=== PATIENT | male | born 2005 | race Caucasian/White ===

== ENCOUNTER 2023-08-22 14:46 | Inpatient (IN) | payer BC ==
[2023-08-22] MEDS ORDERED: METOCLOPRAMIDE 5 MG/ML 2 ML VIAL IVP STA (14:51)
[2023-08-22] MEDS ORDERED: HYDROmorphone 0.5 MG/0.5 ML SYRINGE IVP STA ×2 (14:51→16:42)
[2023-08-22] MEDS ORDERED: KETOROLAC 15 MG/ML 1 ML VIAL IVP STA (14:51)
[2023-08-22] MEDS ORDERED: SODIUM CHLORIDE 0.9% 1,000 ML IV STA ×2 (14:51→16:04)
--- NOTE | 2023-08-22 15:04 | ED ---
Abdominal Pain HPI - General Chief Complaint: Abdominal Pain Stated Complaint: Abd Pain Time Seen by Provider: 08/22/23 14:47 Source: patient, EMS, RN notes reviewed Mode of arrival: EMS Limitations: no limitations - History of Present Illness Initial Comments: This is a 18-year-old male who presents to the emergency department for abdominal pain. Patient reports 2-3 days of right upper quadrant abdominal pain. The initial episode occurred after eating a piece of pizza. His symptoms have since been intermittent with associated nausea and vomiting. He went to see his PCP today regarding the symptoms, and the pain became severe at the office, and he was then sent to the emergency department for further evaluation. The pain does radiate from the right upper quadrant into the back. Denies any radiation into the shoulder. He was given Zofran and morphine by EMS with no significant relief in symptoms. Denies any history of similar problems in the past. Also denies any fevers or chills. States that his urine does appear darker than normal and his PCP and EMS were concerned that he appeared jaundiced. MD Complaint: abdominal pain - Related Data Home Medications Medication Instructions Recorded Confirmed No Known Home Medications 08/22/23 08/22/23 Allergies Allergy/AdvReac Type Severity Reaction Status Date / Time No Known Allergies Allergy Verified 08/22/23 17:45 Review of Systems ROS Statement: Those systems with pertinent positive or pertinent negative responses have been documented in the HPI. ROS Other: All systems not noted in ROS Statement are negative. Past Medical History Past Medical History: No Reported History History of Any Multi-Drug Resistant Organisms: None Reported Past Surgical History: No Surgical Hx Reported Past Psychological History: Anxiety, Depression Smoking Status: Never smoker Past Alcohol Use History: None Reported Past Drug Use History: None Reported General Exam Limitations: no limitations General appearance: alert, in distress Head exam: Present: atraumatic, normocephalic, normal inspection Eye exam: Present: scleral icterus Respiratory exam: Present: normal lung sounds bilaterally. Absent: respiratory distress, wheezes, rales, rhonchi, stridor Cardiovascular Exam: Present: regular rate, normal rhythm, normal heart sounds. Absent: systolic murmur, diastolic murmur, rubs, gallop, clicks GI/Abdominal exam: Present: soft, tenderness (RUQ), normal bowel sounds. Absent: distended Neurological exam: Present: alert, oriented X3, CN II-XII intact Psychiatric exam: Present: normal affect, normal mood Skin exam: Present: warm, dry, intact. Absent: rash Course Vital Signs 08/22/23 14:48 Temperature 96.9 F L Pulse Rate 77 Respiratory 18 Rate Blood Pressure 134/84 O2 Sat by Pulse 98 Oximetry Medical Decision Making - Medical Decision Making This is a 18-year-old male who presents to the emergency department for abdominal pain. Was pt. sent in by a medical professional or institution? @ -No Did you speak to anyone other than the patient for history? @ -No Did you review nursing and triage notes? @ -Yes, and I agree, it is accurate with regards to the patient's symptoms. Were old charts reviewed? @ -No Differential Diagnosis? @ -Differential Abdominal Pain Men: Appendicitis, cholecystitis, diverticulosis, ischemic bowel, pancreatitis, hepatitis, UTI, gastroenteritis, AAA, incarcerated hernia, bowel obstruction, constipation, inflammatory bowel, hepatitis, peptic ulcer disease, splenic infarction, perforated viscus, testicular torsion, this is not meant to be an all-inclusive list EKG interpreted by me (3pts min.)? @ -Not obtained X-rays interpreted by me (1pt min.)? @ -Not obtained CT interpreted by me (1pt min.)? @ -Not obtained U/S interpreted by me (1pt. min.)? @ -Gallbladder ultrasound obtained. My interpretation identifies cholelithiasis What testing was considered but not performed? (CT, X-rays, U/S, labs)? Why? @ -None What meds were considered but not given? Why? @ -None Did you discuss the management of the patient with other professionals? @ -Yes, Dr. Solis, who accepts the patient for admission and advised IV antibiotics and GI consult. Did you reconcile home meds? @ -No Was smoking cessation discussed for >3mins.? @ -No Was critical care preformed (if so, how long)? @ -No Were there social determinants of health that impacted care today? How? (Homelessness, low income, unemployed, alcoholism, drug addiction, transportation, low edu. Level, literacy, decrease access to med. care, snf, rehab)? @ -No Was there de-escalation of care discussed even if they declined? (Discuss DNR or withdrawal of care, Hospice)? @ -No What co-morbidities impacted this encounter? (DM, HTN, Smoking, COPD, CAD, Cancer, CVA, Hep., AIDS, mental health diagnosis, sleep apnea, morbid obesity)? @ -None Was patient admitted / discharged? @ -Admitted. Lab work obtained revealing a leukocytosis with a white blood cell count of 18. Lactic acid also elevated at 2.3. He does also have a dominguez bstantial elevation in LFTs with a bilirubin of 14, AST of 264, and ALT of 490. Pancreatic enzymes also elevated [place] 1081 [place] [address]. Gallbladder ultrasound revealed cholelithiasis with CBD dilation. Patient's father is a nurse test man at the hospital and reached out to his colleague Dr. Solis, general surgery, regarding the patient. Dr. Solis, while not trailhead construction worker, was agreeable to taking the case. He advised admission to himself with GI listed as consult for gallstone pancreatitis. Also recommended IV antibiotics and keeping the patient NPO. He was started on Zosyn and maintenance IV fluids. Undiagnosed new problem with uncertain prognosis? @ -None Drug Therapy requiring intensive monitoring for toxicity (Heparin, Nitro, Insulin, Cardizem)? @ -None Were any procedures done? @ -None Diagnosis/symptom? @ -Gallstone pancreatitis Acute, or Chronic, or Acute on Chronic? @ -Acute Uncomplicated (without systemic symptoms) or Complicated (systemic symptoms)? @ -Complicated Side effects of treatment? @ -None Exacerbation, Progression, or Severe Exacerbation] @ -Not applicable Poses a threat to life or bodily function? @ -Yes This case was discussed in detail with the attending ED physician, Dr. Melendez. Presentation, findings, and treatment plan discussed in detail as well. - Lab Data Result diagrams: 08/22/23 15:12 08/22/23 15:12 Lab Results 08/22/23 08/22/23 08/22/23 Range/Units 15:12 15:12 15:12 WBC 18.0 H (4.0-11.0) k/uL RBC 5.28 (4.30-5.90) m/uL Hgb 16.7 (13.0-17.5) gm/dL Hct 46.1 (39.0-53.0) % MCV 87.2 (80.0-100.0) fL MCH 31.5 (25.0-35.0) pg MCHC 36.1 (31.0-37.0) g/dL RDW 11.7 (11.5-15.5) % Plt Count 285 (150-450) k/uL MPV 6.9 Neutrophils % 85 % Lymphocytes % 8 % Monocytes % 4 % Eosinophils % 2 % Basophils % 0 % Neutrophils # 15.4 H (1.3-7.7) k/uL Lymphocytes # 1.4 (1.0-4.8) k/uL Monocytes # 0.8 (0-1.0) k/uL Eosinophils # 0.3 (0-0.7) k/uL Basophils # 0.0 (0-0.2) k/uL Sodium 136 L (137-145) mmol/L Potassium 3.6 (3.5-5.1) mmol/L Chloride 98 (98-107) mmol/L Carbon Dioxide 23 (22-30) mmol/L Anion Gap 15 mmol/L BUN 17 (9-20) mg/dL Creatinine 1.01 (0.66-1.25) mg/dL Est GFR (CKD-EPI)AfAm >90 (>60 ml/min/1.73 sqM) Est GFR (CKD-EPI)NonAf >90 (>60 ml/min/1.73 sqM) Glucose 140 H (74-99) mg/dL Lactic Ac Sepsis Rflx Plasma Lactic Acid Niraj 2.3 H* (0.7-2.0) mmol/L Calcium 9.7 (8.4-10.2) mg/dL Total Bilirubin 14.0 H (0.2-1.3) mg/dL AST 264 H (17-59) U/L ALT 490 H (4-49) U/L Alkaline Phosphatase 126 (38-126) U/L Total Protein 8.1 (6.3-8.2) g/dL Albumin 4.8 (3.5-5.0) g/dL Amylase 1081 H* (30-110) U/L Lipase 36019 H (23-300) U/L 08/22/23 Range/Units 15:51 WBC (4.0-11.0) k/uL RBC (4.30-5.90) m/uL Hgb (13.0-17.5) gm/dL Hct (39.0-53.0) % MCV (80.0-100.0) fL MCH (25.0-35.0) pg MCHC (31.0-37.0) g/dL RDW (11.5-15.5) % Plt Count (150-450) k/uL MPV Neutrophils % % Lymphocytes % % Monocytes % % Eosinophils % % Basophils % % Neutrophils # (1.3-7.7) k/uL Lymphocytes # (1.0-4.8) k/uL Monocytes # (0-1.0) k/uL Eosinophils # (0-0.7) k/uL Basophils # (0-0.2) k/uL Sodium (137-145) mmol/L Potassium (3.5-5.1) mmol/L Chloride (98-107) mmol/L Carbon Dioxide (22-30) mmol/L Anion Gap mmol/L BUN (9-20) mg/dL Creatinine (0.66-1.25) mg/dL Est GFR (CKD-EPI)AfAm (>60 ml/min/1.73 sqM) Est GFR (CKD-EPI)NonAf (>60 ml/min/1.73 sqM) Glucose (74-99) mg/dL Lactic Ac Sepsis Rflx Y Plasma Lactic Acid Niraj (0.7-2.0) mmol/L Calcium (8.4-10.2) mg/dL Total Bilirubin (0.2-1.3) mg/dL AST (17-59) U/L ALT (4-49) U/L Alkaline Phosphatase (38-126) U/L Total Protein (6.3-8.2) g/dL Albumin (3.5-5.0) g/dL Amylase (30-110) U/L Lipase (23-300) U/L - Radiology Data Radiology results: report reviewed, image reviewed Disposition Clinical Impression: Gallstone pancreatitis Disposition: ADMITTED IP TO THIS HOSP
[2023-08-22 15:20] LABS: Basophils % (A) 0 %; Eosinophils # (A) 0.3 k/uL (0-0.7); Eosinophils % (A) 2 %; HCT 46.1 % (39.0-53.0); HGB 16.7 gm/dL (13.0-17.5); Lymphocytes # (A) 1.4 k/uL (1.0-4.8); Lymphocytes % (A) 8 %; MCH 31.5 pg (25.0-35.0); MCHC 36.1 g/dL (31.0-37.0); MCV 87.2 fL (80.0-100.0); Mean Platelet Volume 6.9; Monocytes # (A) 0.8 k/uL (0-1.0); Monocytes % (A) 4 %; Neutrophils # (A) 15.4 k/uL (1.3-7.7); Neutrophils % (A) 85 %; Platelet Count 285 k/uL (150-450); RBC 5.28 m/uL (4.30-5.90); RDW 11.7 % (11.5-15.5)
--- NOTE | 2023-08-22 15:55 | US ---
EXAMINATION TYPE: US gallbladder DATE OF EXAM: 08/22/2023 COMPARISON: NONE CLINICAL INDICATION: Male, 18 years old with history of RUQ pain; abd pain TECHNIQUE: Multiple sonographic images of the right upper quadrant are obtained. FINDINGS: EXAM MEASUREMENTS: Liver Length: 14.7 cm Gallbladder Wall: 0.3 cm CBD: 1.1 cm Right Kidney: 10.6 x 5.0 x 4.5 cm Pancreas: wnl Liver: wnl Gallbladder: multiple tiny stones that are mobile, no wall thickening yet Evidence for sonographic Corona's sign: no CBD: dilated with no obvious obstruction Right Kidney: wnl IMPRESSION: 1. Cholelithiasis with no diagnostic evidence of cholecystitis. However, CBD is dilated and distal CB D obstruction or partial obstruction suspected.
[2023-08-22] MEDS ORDERED: PIPERACILLIN-TAZOBACTAM 3.375 GM in SODIUM CHLORIDE 0.9% 100 ML IVPB STA (16:05)
[2023-08-22 16:24] LABS: ALT 490 U/L (4-49); AST 264 U/L (17-59); African American GFR (CKD) >90 (>60 ml/min/1.73 sqM); Albumin 4.8 g/dL (3.5-5.0); Alkaline Phosphatase 126 U/L (38-126); Amylase 1081 U/L (30-110); Anion Gap 15 mmol/L; Blood Urea Nitrogen 17 mg/dL (9-20); Calcium 9.7 mg/dL (8.4-10.2); Carbon Dioxide 23 mmol/L (22-30); Chloride 98 mmol/L (98-107); Glucose 140 mg/dL (74-99); Non-African American GFR(CKD) >90 (>60 ml/min/1.73 sqM); Potassium 3.6 mmol/L (3.5-5.1); Sodium 136 mmol/L (137-145); Total Protein 8.1 g/dL (6.3-8.2)
[2023-08-22 16:25] LABS: Lipase 10149 U/L (23-300)
[2023-08-22] MEDS ORDERED: NALOXONE 0.4 MG/ML 1 ML VIAL IV PRN (16:48)
[2023-08-22] MEDS ORDERED: ONDANSETRON 4 MG/2 ML VIAL IVP PRN (16:48)
[2023-08-22] MEDS ORDERED: HYDROmorphone 0.5 MG/0.5 ML SYRINGE IVP PRN (17:05)
--- NOTE | 2023-08-22 17:05 | P.GSHP ---
History of Present Illness H&P Date: 08/22/23 Chief Complaint: Epigastric pain 18-year-old male presents with epigastric pain that began 2 days ago. Pain has come and gone but has been present for the last 24 hours or so. Pain was a 10 out of 10 now is down to 7 out of 10. No chills. No fevers. Patient has had nausea and vomiting. He now notices his skin color being a little bit yellowish tinged. Urine has been dark for the last 2 days. No history of similar events. The patient had an ultrasound showing gallstones and a CBD of 1.1 cm. Patient's labs show a white blood cell count of 18, elevated lactic acid, bilirubin of 14.0, elevated transaminases, elevated alkaline phosphatase, and elevated amylase and lipase. No significant EtOH use. - Review of Systems Comment: The patient denies any acute changes in vision or hearing, no dysphagia or odynophagia, no chest pain or shortness of breath, no dysuria or hematuria, no headache, no runny nose, no rectal bleeding or melena, no unexplained weight loss Past Medical History Past Medical History: No Reported History History of Any Multi-Drug Resistant Organisms: None Reported Past Surgical History: No Surgical Hx Reported Past Psychological History: Anxiety, Depression Smoking Status: Never smoker Past Alcohol Use History: None Reported Past Drug Use History: None Reported Medications and Allergies Allergies Allergy/AdvReac Type Severity Reaction Status Date / Time No Known Allergies Allergy Verified 08/22/23 14:59 Surgical - Exam Vital Signs Temp Pulse Resp BP Pulse Ox 96.9 F L 77 18 134/84 98 08/22/23 14:48 08/22/23 14:48 08/22/23 14:48 08/22/23 14:48 08/22/23 14:48 Physical exam: General: Well-developed, well-nourished HEENT: Normocephalic, sclerae is icteric Abdomen: Mild epigastric tenderness, no rebound or guarding, nondistended Extremities: No edema, slight jaundice noted Neuro: Alert and oriented Results - Labs 08/22/23 15:12 08/22/23 15:12 Abnormal Lab Results - Last 24 Hours (Table) 08/22/23 08/22/23 08/22/23 Range/Units 15:12 15:12 15:12 WBC 18.0 H (4.0-11.0) k/uL Neutrophils # 15.4 H (1.3-7.7) k/uL Sodium 136 L (137-145) mmol/L Glucose 140 H (74-99) mg/dL Plasma Lactic Acid Niraj 2.3 H* (0.7-2.0) mmol/L Total Bilirubin 14.0 H (0.2-1.3) mg/dL AST 264 H (17-59) U/L ALT 490 H (4-49) U/L Amylase 1081 H* (30-110) U/L Lipase 20738 H (23-300) U/L Diabetes panel 08/22/23 Range/Units 15:12 Sodium 136 L (137-145) mmol/L Potassium 3.6 (3.5-5.1) mmol/L Chloride 98 (98-107) mmol/L Carbon Dioxide 23 (22-30) mmol/L BUN 17 (9-20) mg/dL Creatinine 1.01 (0.66-1.25) mg/dL Glucose 140 H (74-99) mg/dL Calcium 9.7 (8.4-10.2) mg/dL AST 264 H (17-59) U/L ALT 490 H (4-49) U/L Alkaline Phosphatase 126 (38-126) U/L Total Protein 8.1 (6.3-8.2) g/dL Albumin 4.8 (3.5-5.0) g/dL Calcium panel 08/22/23 Range/Units 15:12 Calcium 9.7 (8.4-10.2) mg/dL Albumin 4.8 (3.5-5.0) g/dL Pituitary panel 08/22/23 Range/Units 15:12 Sodium 136 L (137-145) mmol/L Potassium 3.6 (3.5-5.1) mmol/L Chloride 98 (98-107) mmol/L Carbon Dioxide 23 (22-30) mmol/L BUN 17 (9-20) mg/dL Creatinine 1.01 (0.66-1.25) mg/dL Glucose 140 H (74-99) mg/dL Calcium 9.7 (8.4-10.2) mg/dL Adrenal panel 08/22/23 Range/Units 15:12 Sodium 136 L (137-145) mmol/L Potassium 3.6 (3.5-5.1) mmol/L Chloride 98 (98-107) mmol/L Carbon Dioxide 23 (22-30) mmol/L BUN 17 (9-20) mg/dL Creatinine 1.01 (0.66-1.25) mg/dL Glucose 140 H (74-99) mg/dL Calcium 9.7 (8.4-10.2) mg/dL Total Bilirubin 14.0 H (0.2-1.3) mg/dL AST 264 H (17-59) U/L ALT 490 H (4-49) U/L Alkaline Phosphatase 126 (38-126) U/L Total Protein 8.1 (6.3-8.2) g/dL Albumin 4.8 (3.5-5.0) g/dL Assessment and Plan (1) Gallstone pancreatitis Narrative/Plan: 18-year-old male with gallstone pancreatitis. Patient with ultrasound showing gallstones and a dilated common bile duct. We'll order CT pancreas biphase to evaluate degree of pancreatitis. We'll consult GI for possible ERCP. IV fluid resuscitation. Patient will require laparoscopic cholecystectomy likely later during this hospitalization. Continue antibiotics for possible cholangitis. Current Visit: Yes Status: Acute Code(s): K85.10 - BILIARY ACUTE PANCREATITIS WITHOUT NECROSIS OR INFECTION SNOMED Code(s): 97411170
[2023-08-22] MEDS: D5-0.45% NACL WITH KCL 20MEQ/L 1,000 ML IV SCH (17:47)
--- NOTE | 2023-08-22 17:53 | CT ---
EXAMINATION TYPE: CT pancreas biphase CT DLP: 667.8 mGycm, Automated exposure control for dose reduction was used. DATE OF EXAM: 08/22/2023 5:42 PM COMPARISON: Gallbladder ultrasound 08/22/2023 CLINICAL INDICATION:Male, 18 years old with history of gallstone pancreatitis; gallstone pancreatitis . RUQ pain, nausea and vomiting TECHNIQUE: Multiphase CT of the abdomen following the administration of 100 cc of Isovue 300 IV cont rast material. Coronal and sagittal reformats were performed. FINDINGS: LOWER CHEST: Unremarkable ABDOMEN LIVER: Unremarkable GALLBLADDER AND BILE DUCTS: Gallbladder is mildly prominent. Mild extra and intrahepatic biliary duct dilatation. The common bile duct measures up to 1.2 cm. No definitive calcification in the common bi le duct. PANCREAS: Diffuse heterogenous edematous appearance of the pancreas. No focal regions of nonenhanceme nt to suggest necrosis. There is surrounding peripancreatic fluid without organization. No parenchyma l calcifications noted. No pancreatic ductal dilatation. No evidence for vascular complication. SPLEEN: Unremarkable. ADRENAL GLANDS: Unremarkable. KIDNEYS AND URETERS: No evidence of hydronephrosis or renal calculus. The kidneys enhance symmetrical ly. STOMACH AND BOWEL: Wall thickening with of the proximal duodenum. No evidence of bowel obstruction. PERITONEUM: No evidence of pneumoperitoneum. VASCULATURE: No evidence of aortic aneurysm. MUSCULOSKELETAL: No acute osseous abnormalities LYMPH NODES: No gross evidence for lymphadenopathy. SOFT TISSUE/ABDOMINAL WALL: Unremarkable IMPRESSION: 1. Findings of acute interstitial edematous pancreatitis. No evidence for necrosis. Surrounding cj pancreatic fluid without organized fluid collection. 2. Mild intra and extra hepatic biliary ductal dilatation without definitive calculus identified. CT is not sensitive for detecting choledocholithiasis. Consider further evaluation with MRCP/ERCP.
[2023-08-22] MEDS: HYDROmorphone 1 MG/ML 1 ML SYRINGE IVP PRN ×2 (19:33→22:25)
[2023-08-22 20:24] LABS: Color,Urine Dark Orange
[2023-08-22 20:25] LABS: Appearance,Urine Clear (Clear); Bilirubin,Urine 1+ (Negative); Blood,Urine Negative (Negative); Glucose,Urine (UA) Negative (Negative); Ketones,Urine 3+ (Negative); Leukocyte Esterase,Urine Negative (Negative); Nitrite,Urine Negative (Negative); PH, Urine 5.5 (5.0-8.0); Protein,Urine Trace (Negative); Specific Gravity,Urine 1.015 (1.001-1.035); Urobilinogen,Urine <2.0 mg/dL (<2.0)
[2023-08-22] MEDS: HYDROmorphone 0.5 MG/0.5 ML SYRINGE IVP PRN (21:15)
[2023-08-22] MEDS: HEPARIN SODIUM,PORCINE 5,000 UNIT/ML 1 ML VIAL SQ SCH (21:16)
[2023-08-22] MEDS ORDERED: HYDROmorphone 1 MG/ML 1 ML SYRINGE IVP STA (23:35)
[2023-08-23] MEDS: PIPERACILLIN-TAZOBACTAM 3.375 GM in SODIUM CHLORIDE 0.9% 100 ML IVPB SCH ×4 (00:15→23:44)
[2023-08-23] MEDS: D5-0.45% NACL WITH KCL 20MEQ/L 1,000 ML IV SCH ×4 (00:19→18:33)
[2023-08-23] MEDS: HYDROmorphone 0.5 MG/0.5 ML SYRINGE IVP PRN ×2 (01:11→05:46)
[2023-08-23] MEDS: HYDROmorphone 1 MG/ML 1 ML SYRINGE IVP PRN ×6 (03:31→21:47)
[2023-08-23 07:57] LABS: Basophils % (A) 0 %; Eosinophils # (A) 0.1 k/uL (0-0.7); Eosinophils % (A) 1 %; HCT 49.2 % (39.0-53.0); HGB 17.5 gm/dL (13.0-17.5); Lymphocytes % (A) 7 %; MCH 30.9 pg (25.0-35.0); MCHC 35.5 g/dL (31.0-37.0); MCV 87.1 fL (80.0-100.0); Mean Platelet Volume 6.6; Monocytes # (A) 0.9 k/uL (0-1.0); Monocytes % (A) 6 %; Neutrophils # (A) 12.5 k/uL (1.3-7.7); Neutrophils % (A) 86 %; Platelet Count 329 k/uL (150-450); RBC 5.65 m/uL (4.30-5.90); RDW 11.7 % (11.5-15.5); WBC 14.6 k/uL (4.0-11.0)
[2023-08-23 07:58] LABS: INR 1.2 (<1.2); Prothrombin Time 12.6 sec (10.0-12.5)
[2023-08-23 08:02] LABS: ALT 346 U/L (4-49); AST 127 U/L (17-59); African American GFR (CKD) >90 (>60 ml/min/1.73 sqM); Albumin/Globulin Ratio 1.3; Alkaline Phosphatase 102 U/L (38-126); Anion Gap 11 mmol/L; Blood Urea Nitrogen 16 mg/dL (9-20); Calcium 8.9 mg/dL (8.4-10.2); Carbon Dioxide 23 mmol/L (22-30); Chloride 101 mmol/L (98-107); Glucose 145 mg/dL (74-99); Non-African American GFR(CKD) >90 (>60 ml/min/1.73 sqM); Potassium 4.2 mmol/L (3.5-5.1); Sodium 135 mmol/L (137-145); Total Bilirubin 7.3 mg/dL (0.2-1.3)
[2023-08-23] MEDS: HEPARIN SODIUM,PORCINE 5,000 UNIT/ML 1 ML VIAL SQ SCH ×2 (08:08→08:18)
[2023-08-23] MEDS: ONDANSETRON 4 MG/2 ML VIAL IVP PRN ×2 (09:16→18:47)
[2023-08-23 11:01] LABS: Basophils # (A) 0.02 X 10*3/uL (0.00-0.10); Basophils % (A) 0.1 %; Eosinophils # (A) 0.05 X 10*3/uL (0.04-0.35); Eosinophils % (A) 0.3 %; HCT 46.7 % (39.6-50.0); HGB 16.9 d/dL (13.0-17.0); Lymphocytes # (A) 0.98 X 10*3/uL (0.90-5.00); Lymphocytes % (A) 6.5 %; MCH 30.3 pg (27.0-32.0); MCHC 36.2 d/dL (32.0-37.0); MCV 83.8 FL (80.0-97.0); Mean Platelet Volume 9.4 FL (9.5-12.2); Monocytes # (A) 1.17 X 10*3/uL (0.20-1.00); Monocytes % (A) 7.7 %; NRBC Per 100 WBC 0 X 10*3/uL (0.00-0.01); Neutrophils # (A) 12.88 X 10*3/uL (1.80-7.70); Platelet Count 354 X 10*3/uL (140-440); RBC 5.57 X 10*6/uL (4.40-5.60); RDW 11.7 % (11.5-14.5); WBC 15.16 X 10*3/uL (4.50-10.00)
--- NOTE | 2023-08-23 11:15 | P.CONS ---
History of Present Illness - Reason for Consult Consult date: 08/23/23 gallStone pancreatitis Requesting physician: Prateek Solis - Chief Complaint Abdominal pain - History of Present Illness This is a pleasant 18-year-old male who presented to the emergency department yesterday evening with complaints of abdominal pain. Most the pain is in the epigastric right upper quadrant region that is radiating into his pack and has been associated with nausea and vomiting. Patient states Monday night he ate 3 pieces of pizza and following that he started having pain in the epigastric region and had some nausea and vomiting. States Monday he was feeling better however Yesterday. He came back and was sharp and intense in the epigastric region radiating to his back. He had some associated nausea and vomiting through the night. He came into the emergency department for further evaluation and was found to have elevated LFTs as well as amylase and lipase. He denies any previous history of liver disease, no previous known history of gallbladder disease. He states pain is somewhat better however he is getting IV pain medication every 3 hours. He has some nausea related to the pain. He denied any fevers or chills. He has been afebrile. He has been started on IV Zosyn. Today's repeat labs WBC 14.6 hemoglobin 17.5 platelet count 329,000 INR 1.2 total bilirubin 7.3 AST 127 ALT 346 alkaline phosphatase 102. Amylase and lipase currently pending Admitting Labs WBC 18.0 hemoglobin 16.7 hematocrit 46 platelet count 285,000 sodium 136 potassium 3.6 BUN 17 creatinine 1.0 glucose 140 lactic acid 2.3 total bilirubin 14 AST 264 ALT 490 alkaline phosphatase 126 amylase 1081 lipase 10,149 He underwent ultrasound of the gallbladder which reported cholelithiasis with no diagnostic evidence of cholecystitis however CBD is dilated and distal CBD obstruction or partial obstruction suspected. He then underwent CT of the pancreas which reported acute interstitial edematous pancreatitis. No evidence for necrosis. Surrounding. Pancreatic fluid without organized fluid collection. Mild intra-and extrahepatic biliary ductal dilation without definitive calculus identified. CT is not sensitive for detecting choledocholithiasis consider further evaluation with MRCP/ERCP Review of Systems REVIEW OF SYSTEMS: CARDIOPULMONARY: No chest pain or shortness of breath. Gastrointestinal: Epigastric right upper quadrant pain radiating into the back. Nausea but no vomiting currently. No hematemesis, coffee-ground emesis. No rectal bleeding, or melena. GENITOURINARY: No dysuria or hematuria. MUSCULOSKELETAL: Reports normal range of motion. SKIN: No rashes. No jaundice. ENDOCRINE: No chills, fevers. No excessive weight gain or loss. No polydipsia or polyuria. PSYCHIATRIC: Unremarkable. NEUROLOGY: No change in mental status. Denies dizziness, headache. ENT: Vision unremarkable. CONSTITUTIONAL: No recent weight loss. No fever, chills, night sweats. Past Medical History Past Medical History: No Reported History History of Any Multi-Drug Resistant Organisms: None Reported Past Surgical History: No Surgical Hx Reported Past Psychological History: Anxiety, Depression Smoking Status: Never smoker Past Alcohol Use History: None Reported Past Drug Use History: None Reported Medications and Allergies Home Medications Medication Instructions Recorded Confirmed Type No Known Home Medications 08/22/23 08/22/23 History Allergies Allergy/AdvReac Type Severity Reaction Status Date / Time No Known Allergies Allergy Verified 08/22/23 17:45 Physical Exam Vitals: Vital Signs Temp Pulse Resp BP Pulse Ox 08/23/23 06:36 76 18 120/68 100 08/23/23 02:53 98.2 F 72 18 126/74 99 08/22/23 14:48 96.9 F L 77 18 134/84 98 General appearance: The patient is alert, oriented, appears in no acute distress. HET: Head is normocephalic and atraumatic. Conjunctiva pink. Sclera anicteric. Neck: Supple without lymphadenopathy. Trachea midline. Heart: Regular. Lungs: Equal expansion, normal respiratory effort. Abdomen: Soft, epigastric and right upper quadrant tenderness to palpation. No guarding or rigidity. Skin: No rashes. Jaundice. Extremities: Normal skin color and turgor. No pedal edema. Neurological: No focal deficits. Alert and oriented x3. Results CBC & Chem 7: 08/23/23 07:39 08/23/23 07:39 Labs: Abnormal Lab Results - Last 24 Hours (Table) 08/22/23 08/22/23 08/22/23 Range/Units 15:12 15:12 15:12 WBC 18.0 H (4.0-11.0) k/uL Neutrophils # 15.4 H (1.3-7.7) k/uL PT (10.0-12.5) sec INR (<1.2) Sodium 136 L (137-145) mmol/L Glucose 140 H (74-99) mg/dL Plasma Lactic Acid Niraj 2.3 H* (0.7-2.0) mmol/L Total Bilirubin 14.0 H (0.2-1.3) mg/dL AST 264 H (17-59) U/L ALT 490 H (4-49) U/L Amylase 1081 H* (30-110) U/L Lipase 44545 H (23-300) U/L Urine Protein (Negative) Urine Ketones (Negative) Urine Bilirubin (Negative) 08/22/23 08/23/23 08/23/23 Range/Units 20:05 07:39 07:39 WBC 14.6 H (4.0-11.0) k/uL Neutrophils # 12.5 H (1.3-7.7) k/uL PT 12.6 H (10.0-12.5) sec INR 1.2 H (<1.2) Sodium (137-145) mmol/L Glucose (74-99) mg/dL Plasma Lactic Acid Niraj (0.7-2.0) mmol/L Total Bilirubin (0.2-1.3) mg/dL AST (17-59) U/L ALT (4-49) U/L Amylase (30-110) U/L Lipase (23-300) U/L Urine Protein Trace H (Negative) Urine Ketones 3+ H (Negative) Urine Bilirubin 1+ H (Negative) 08/23/23 Range/Units 07:39 WBC (4.0-11.0) k/uL Neutrophils # (1.3-7.7) k/uL PT (10.0-12.5) sec INR (<1.2) Sodium 135 L (137-145) mmol/L Glucose 145 H (74-99) mg/dL Plasma Lactic Acid Niraj (0.7-2.0) mmol/L Total Bilirubin 7.3 H (0.2-1.3) mg/dL AST 127 H (17-59) U/L ALT 346 H (4-49) U/L Amylase (30-110) U/L Lipase (23-300) U/L Urine Protein (Negative) Urine Ketones (Negative) Urine Bilirubin (Negative) Comments: ultrasound of the gallbladder which reported cholelithiasis with no diagnostic evidence of cholecystitis however CBD is dilated and distal CBD obstruction or partial obstruction suspected. CT of the pancreas which reported acute interstitial edematous pancreatitis. No evidence for necrosis. Surrounding. Pancreatic fluid without organized fluid collection. Mild intra-and extrahepatic biliary ductal dilation without defin itive calculus identified. CT is not sensitive for detecting choledocholithiasis consider further evaluation with MRCP/ERCP Assessment and Plan (1) Gallstone pancreatitis Narrative/Plan: 18-year-old male who presented to the emergency department with right upper quadrant and epigastric pain radiating to his back associated with nausea and vomiting since Monday evening was noted to have elevated LFTs as well as amylase and lipase. Ultrasound of the gallbladder shows cholelithiasis with dilated CBD. Patient afebrile, no fevers or chills. CT pancreas shows inflammation of pancreas consistent with acute pancreatitis. No previous history of gallbladder disease, liver disease or pancreatitis. He is admitted with gallstone pancreatitis. Gen. surgery is following. Continue with aggressive IV hydration, pain medication, antiemetics. Keep nothing by mouth except ice chips. Labs are trending down, he is hemodynamically stable. Will await for pancreatic enzymes to return. Likely will proceed with ERCP either tomorrow or Monday depending on patient's symptoms and labs. Current Visit: Yes Status: Acute Code(s): K85.10 - BILIARY ACUTE PANCREATITIS WITHOUT NECROSIS OR INFECTION SNOMED Code(s): 90817308 Plan: 1. Continue symptomatic and supportive care 2. Continue aggressive IV hydration 3. Continue IV Zosyn as ordered 4. Protonix 40 mg daily 5. Repeat stat CBC, CMP, amylase and lipase 6. Repeat daily CBC CMP and lipase 7. Nothing by mouth except ice chips, nothing by mouth after midnight 8. Further recommendations forthcoming and timing of ERCP. Likely tomorrow or Monday. 9. Continue with recommendations from general surgery Thank you for this consultation, we will continue to follow closely. Dr. Lui George I agree with the dictator's note, documented as a scribe by Charis Sepulveda.
[2023-08-23] MEDS: PANTOPRAZOLE 40 MG/10 ML VIAL IVP SCH (11:54)
--- NOTE | 2023-08-23 12:08 | P.PN ---
Subjective Progress Note Date: 08/23/23 CHIEF COMPLAINT: Gallstone pancreatitis HISTORY OF PRESENT ILLNESS: Patient reports that his pain is a little less today. He did have an episode of vomiting around 3 AM this morning. He's had issues with nausea. Patient seen by GI service. Possible ERCP tomorrow or Monday. Afebrile. WBC is down from 18-14.6 total bilirubin is down from 14-7.3 LFTs trending down. Lipase pending PHYSICAL EXAM: VITAL SIGNS: Reviewed. GENERAL: Well-developed in no acute distress. HEENT: Scleral icterus present ABDOMEN: Soft. Nondistended. Epigastric and right upper quadrant tenderness NEUROLOGIC: Alert and oriented. Cranial nerves II through XII grossly intact. ASSESSMENT: 1. Gallstone pancreatitis 2. Possible ascending cholangitis PLAN: -Keep patient nothing by mouth -Continue IV fluids -Patient to have ERCP tomorrow or Monday per GI service -Continue pain management -Continue antibiotics -Laparoscopic cholecystectomy likely later during this hospitalization Physician Harbormaster note has been reviewed by physician. Signing provider agrees with the documented findings, assessment, and plan of care. I have personally seen and examined the patient, reviewed the MOTOR SETTER /PAs history, exam and MDM and agree with the assessment and plan as written. Based on total visit time, I have performed more than 50% of the visit. As above: Patient seen on rounds yesterday. Pain was improved. White blood cell count had improved. GI evaluation noted. Continue IV hydration. Keep nothing by mouth. Objective - Vital Signs Vital signs: Vital Signs Temp 98.7 F 08/23/23 10:07 Pulse 77 08/23/23 10:07 Resp 20 08/23/23 10:07 BP 119/81 08/23/23 10:07 Pulse Ox 97 08/23/23 10:07 FiO2 Intake & Output 08/22/23 08/23/23 08/23/23 18:59 06:59 18:59 Weight 83.915 kg - Labs CBC & Chem 7: 08/24/23 04:09 08/24/23 04:09 Labs: Abnormal Lab Results - Last 24 Hours (Table) 08/22/23 08/22/23 08/22/23 Range/Units 15:12 15:12 15:12 WBC 18.0 H (4.0-11.0) k/uL Neutrophils # 15.4 H (1.3-7.7) k/uL PT (10.0-12.5) sec INR (<1.2) Sodium 136 L (137-145) mmol/L Glucose 140 H (74-99) mg/dL Plasma Lactic Acid Niraj 2.3 H* (0.7-2.0) mmol/L Total Bilirubin 14.0 H (0.2-1.3) mg/dL AST 264 H (17-59) U/L ALT 490 H (4-49) U/L Amylase 1081 H* (30-110) U/L Lipase 12100 H (23-300) U/L Urine Protein (Negative) Urine Ketones (Negative) Urine Bilirubin (Negative) 08/22/23 08/23/23 08/23/23 Range/Units 20:05 07:39 07:39 WBC 14.6 H (4.0-11.0) k/uL Neutrophils # 12.5 H (1.3-7.7) k/uL PT 12.6 H (10.0-12.5) sec INR 1.2 H (<1.2) Sodium (137-145) mmol/L Glucose (74-99) mg/dL Plasma Lactic Acid Niraj (0.7-2.0) mmol/L Total Bilirubin (0.2-1.3) mg/dL AST (17-59) U/L ALT (4-49) U/L Amylase (30-110) U/L Lipase (23-300) U/L Urine Protein Trace H (Negative) Urine Ketones 3+ H (Negative) Urine Bilirubin 1+ H (Negative) 08/23/23 Range/Units 07:39 WBC (4.0-11.0) k/uL Neutrophils # (1.3-7.7) k/uL PT (10.0-12.5) sec INR (<1.2) Sodium 135 L (137-145) mmol/L Glucose 145 H (74-99) mg/dL Plasma Lactic Acid Niraj (0.7-2.0) mmol/L Total Bilirubin 7.3 H (0.2-1.3) mg/dL AST 127 H (17-59) U/L ALT 346 H (4-49) U/L Amylase (30-110) U/L Lipase (23-300) U/L Urine Protein (Negative) Urine Ketones (Negative) Urine Bilirubin (Negative)
[2023-08-23 16:00] LABS: Lipase 2373 U/L (14-60)
[2023-08-23 16:21] LABS: Amylase 1356 U/L (23-121)
[2023-08-24] MEDS: D5-0.45% NACL WITH KCL 20MEQ/L 1,000 ML IV SCH ×3 (01:50→23:02)
[2023-08-24] MEDS: HYDROmorphone 1 MG/ML 1 ML SYRINGE IVP PRN ×6 (03:23→23:01)
[2023-08-24] MEDS: PIPERACILLIN-TAZOBACTAM 3.375 GM in SODIUM CHLORIDE 0.9% 100 ML IVPB SCH ×3 (07:55→23:03)
[2023-08-24] MEDS: HEPARIN SODIUM,PORCINE 5,000 UNIT/ML 1 ML VIAL SQ SCH ×2 (07:56→21:09)
[2023-08-24] MEDS: PANTOPRAZOLE 40 MG/10 ML VIAL IVP SCH (07:56)
[2023-08-24 09:20] LABS: HCT 41.2 % (39.6-50.0); HGB 14.7 d/dL (13.0-17.0); MCH 30.5 pg (27.0-32.0); MCHC 35.7 d/dL (32.0-37.0); MCV 85.5 FL (80.0-97.0); Mean Platelet Volume 9.7 FL (9.5-12.2); NRBC Per 100 WBC 0 X 10*3/uL (0.00-0.01); Platelet Count 291 X 10*3/uL (140-440); RBC 4.82 X 10*6/uL (4.40-5.60); RDW 11.8 % (11.5-14.5)
[2023-08-24 09:44] LABS: Lipase 1951 U/L (14-60)
[2023-08-24 09:45] LABS: ALT 184 U/L (10-49); AST 44 U/L (14-35); Albumin 3.4 d/dL (3.8-4.9); Albumin/Globulin Ratio 1.79 Ratio (1.60-3.17); Alkaline Phosphatase 91 U/L (41-126); Blood Urea Nitrogen 9.7 mg/dL (9.0-27.0); Calcium 8.5 mg/dL (8.7-10.3); Carbon Dioxide 24.4 mmol/L (21.6-31.8); Chloride 98 mmol/L (96-109); Globulin 1.9 d/dL (1.6-3.3); Glucose 121 mg/dL (70-110); Potassium 3.9 mmol/L (3.5-5.5); Sodium 134 mmol/L (135-145); Total Bilirubin 4.2 mg/dL (0.3-1.2); Total Protein 5.3 d/dL (6.2-8.2)
[2023-08-24 10:24] LABS: Basophils # (A) 0.05 X 10*3/uL (0.00-0.10); Basophils % (A) 0.3 %; Eosinophils # (A) 0.12 X 10*3/uL (0.04-0.35); Eosinophils % (A) 0.7 %; Lymphocytes # (A) 0.86 X 10*3/uL (0.90-5.00); Monocytes # (A) 1.69 X 10*3/uL (0.20-1.00); Monocytes % (A) 9.8 %; Neutrophils % (A) 83.7 %; RBC Morphology Normal (Normal)
--- NOTE | 2023-08-24 10:48 | P.PN ---
Subjective Progress Note Date: 08/24/23 CHIEF COMPLAINT: Gallstone pancreatitis HISTORY OF PRESENT ILLNESS: Patient lying in bed comfortably. Reports a decrease in pain. Denies any vomiting. Didn't have some nausea after pain medication. Did have a temp of 101 last night with heart rate 104. WBC is up from 14-17.3. Total bilirubin down from 7.3-4.8 AST 127 down to 44 ALT 346 down to 184 alk phos 91 lipase is down to 1951 PHYSICAL EXAM: VITAL SIGNS: Reviewed. GENERAL: Well-developed in no acute distress. HEENT: Scleral icterus present ABDOMEN: Soft. Nondistended. Epigastric and right upper quadrant tenderness NEUROLOGIC: Alert and oriented. Cranial nerves II through XII grossly intact. Skin: Jaundice ASSESSMENT: 1. Gallstone pancreatitis 2. Possible ascending cholangitis PLAN: -Keep patient nothing by mouth -Awaiting GI decision about possible ERCP today -Continue IV fluids -Continue pain management -Continue antibiotics -Laparoscopic cholecystectomy likely later during this hospitalization Physician Spray Mixer note has been reviewed by physician. Signing provider agrees with the documented findings, assessment, and plan of care. I have personally seen and examined the patient, reviewed the CARTON MARKER MACHINE /PAs history, exam and MDM and agree with the assessment and plan as written. Based on total visit time, I have performed more than 50% of the visit. As above: Patient feels well. Less pain although still using IV pain medications. He had a temp of 101 and his white count did go up slightly today. Agree with plans for ERCP. Will tentatively scheduled for laparoscopic, possible open cholecystectomy on Monday. Risks of bleeding, infection, bile leak, bile duct injury, retained common bile duct stone, trocar injury, conversion to an open procedure, hernia, anesthesia related complications were reviewed. The patient understands and wishes to proceed. Objective - Vital Signs Vital signs: Vital Signs Temp 98.1 F 08/24/23 07:00 Pulse 80 08/24/23 07:00 Resp 20 08/24/23 07:00 BP 111/68 08/24/23 07:00 Pulse Ox 98 08/24/23 07:00 FiO2 Intake & Output 08/23/23 08/24/23 08/24/23 18:59 06:59 18:59 Intake Total 0 Balance 0 Weight 83.915 kg Intake: Oral 0 Other: Voiding Method Toilet - Labs CBC & Chem 7: 08/24/23 04:09 08/24/23 04:09 Labs: Abnormal Lab Results - Last 24 Hours (Table) 08/23/23 08/23/23 08/24/23 Range/Units 07:32 07:48 04:09 WBC 15.16 H 17.30 H (4.50-10.00) X 10*3/uL MPV 9.4 L (9.5-12.2) FL Neutrophils # 12.88 H 14.50 H (1.80-7.70) X 10*3/uL Lymphocytes # 0.86 L (0.90-5.00) X 10*3/uL Monocytes # 1.17 H 1.69 H (0.20-1.00) X 10*3/uL Sodium (135-145) mmol/L BUN/Creatinine Ratio (12.00-20.00) Ratio Glucose (70-110) mg/dL Calcium (8.7-10.3) mg/dL Total Bilirubin (0.3-1.2) mg/dL AST (14-35) U/L ALT (10-49) U/L Total Protein (6.2-8.2) d/dL Albumin (3.8-4.9) d/dL Amylase 1356 H* (23-121) U/L Lipase 2373 H (14-60) U/L 08/24/23 Range/Units 04:09 WBC (4.50-10.00) X 10*3/uL MPV (9.5-12.2) FL Neutrophils # (1.80-7.70) X 10*3/uL Lymphocytes # (0.90-5.00) X 10*3/uL Monocytes # (0.20-1.00) X 10*3/uL Sodium 134 L (135-145) mmol/L BUN/Creatinine Ratio 9.70 L (12.00-20.00) Ratio Glucose 121 H (70-110) mg/dL Calcium 8.5 L (8.7-10.3) mg/dL Total Bilirubin 4.2 H (0.3-1.2) mg/dL AST 44 H (14-35) U/L ALT 184 H (10-49) U/L Total Protein 5.3 L (6.2-8.2) d/dL Albumin 3.4 L (3.8-4.9) d/dL Amylase (23-121) U/L Lipase 1951 H (14-60) U/L Microbiology - Last 24 Hours (Table) 08/22/23 16:40 Blood Culture - Preliminary Blood 08/22/23 16:20 Blood Culture - Preliminary Blood
--- NOTE | 2023-08-24 15:47 | P.PN ---
Subjective Progress Note Date: 08/24/23 Principal diagnosis: Gallstone pancreatitis This is a pleasant 18-year-old male who presented to the emergency department yesterday evening with complaints of abdominal pain. Most the pain is in the epigastric right upper quadrant region that is radiating into his pack and has been associated with nausea and vomiting. Patient states Monday night he ate 3 pieces of pizza and following that he started having pain in the epigastric region and had some nausea and vomiting. States Monday he was feeling better however Yesterday. He came back and was sharp and intense in the epigastric region radiating to his back. He had some associated nausea and vomiting through the night. He came into the emergency department for further evaluation and was found to have elevated LFTs as well as amylase and lipase. He denies any previous history of liver disease, no previous known history of gallbladder disease. He states pain is somewhat better however he is getting IV pain m edication every 3 hours. He has some nausea related to the pain. He denied any fevers or chills. He has been afebrile. He has been started on IV Zosyn. Today's repeat labs WBC 14.6 hemoglobin 17.5 platelet count 329,000 INR 1.2 total bilirubin 7.3 AST 127 ALT 346 alkaline phosphatase 102. Amylase and lipase currently pending Admitting Labs WBC 18.0 hemoglobin 16.7 hematocrit 46 platelet count 285,000 sodium 136 potassium 3.6 BUN 17 creatinine 1.0 glucose 140 lactic acid 2.3 total bilirubin 14 AST 264 ALT 490 alkaline phosphatase 126 amylase 1081 lipase 10,149 He underwent ultrasound of the gallbladder which reported cholelithiasis with no diagnostic evidence of cholecystitis however CBD is dilated and distal CBD obstruction or partial obstruction suspected. He then underwent CT of the pancreas which reported acute interstitial edematous pancreatitis. No evidence for necrosis. Surrounding. Pancreatic fluid without organized fluid collection. Mild intra-and extrahepatic biliary ductal dilation without definitive calculus identified. CT is not sensitive for detecting choled ocholithiasis consider further evaluation with MRCP/ERCP 08/24/2023 Patient was seen and examined at the follow-up. He was resting in bed comfortably. He states the abdominal pain has improved some. He did spike a fever through the night with a max temp of 101.0, he has been afebrile since then. He states he has some nausea but no vomiting. He is still really requiring IV pain medication every 3-6 hours. He remains on IV Zosyn. WBC 17.3 hemoglobin 14.7 platelet count 291,000 total bilirubin 4.2 AST 44 ALT 184 alkaline phosphatase 91 lipase 1951 Objective - Vital Signs Vital signs: Vital Signs Temp 98.1 F 08/24/23 07:00 Pulse 80 08/24/23 07:00 Resp 20 08/24/23 07:00 BP 111/68 08/24/23 07:00 Pulse Ox 98 08/24/23 07:00 FiO2 Intake & Output 08/23/23 08/24/23 08/24/23 18:59 06:59 18:59 Intake Total 0 Balance 0 Weight 83.915 kg Intake: Oral 0 Other: Voiding Method Toilet - Exam General appearance: The patient is alert, oriented, appears in no acute distress. HET: Head is normocephalic and atraumatic. Conjunctiva pink. Sclera anicteric. Neck: Supple without lymphadenopathy. Abdomen: Soft, epigastric and right upper quadrant tenderness, nondistended. No guarding or rigidity. Extremities: Normal skin color and turgor. No pedal edema Skin: No rashes, no jaundice Neurological: No focal deficits. Alert and oriented. - Labs CBC & Chem 7: 08/24/23 04:09 08/24/23 04:09 Labs: Abnormal Lab Results - Last 24 Hours (Table) 08/23/23 08/23/23 Range/Units 07:32 07:48 WBC 15.16 H (4.50-10.00) X 10*3/uL MPV 9.4 L (9.5-12.2) FL Neutrophils # 12.88 H (1.80-7.70) X 10*3/uL Monocytes # 1.17 H (0.20-1.00) X 10*3/uL Amylase 1356 H* (23-121) U/L Lipase 2373 H (14-60) U/L Microbiology - Last 24 Hours (Table) 08/22/23 16:40 Blood Culture - Preliminary Blood 08/22/23 16:20 Blood Culture - Preliminary Blood Assessment and Plan (1) Gallstone pancreatitis Narrative/Plan: 18-year-old male who presented to the emergency department with right upper quadrant and epigastric pain radiating to his back associated with nausea and vomiting since Monday evening was noted to have elevated LFTs as well as amylase and lipase. Ultrasound of the gallbladder shows cholelithiasis with dilated CBD. Patient afebrile, no fevers or chills. CT pancreas shows inflammation of pancreas consistent with acute pancreatitis. No previous history of gallbladder disease, liver disease or pancreatitis. He is admitted with gallstone pancreatitis. Gen. surgery is following. Continue with aggressive IV hydration, pain medication, antiemetics. Keep nothing by mouth except ice chips. Labs are trending down, he is hemodynamically stable. Will await for pancreatic enzymes to return. Likely will proceed with ERCP either tomorrow or Monday depending on patient's symptoms and labs. Labs continue to improve and are trending down. Abdominal pain improving as well. Patient had one mixed [place] 101 but has since been afebrile. We'll plan on ERCP tomorrow morning. Current Visit: Yes Status: Acute Code(s): K85.10 - BILIARY ACUTE ARTHUR CREATITIS WITHOUT NECROSIS OR INFECTION SNOMED Code(s): 14126423 Plan: 1. Continue symptomatic and supportive care 2. Continue aggressive IV hydration 3. Continue IV Zosyn as ordered 4. Protonix 40 mg daily 5. Repeat daily CBC CMP and lipase 6. He may have clear liquid diet, nothing by mouth after midnight 7. Indomethacin 100 mg per rectum one hour prior to procedure 8. Plan for ERCP tomorrow 9. Continue with recommendations from general surgery Thank you for this consultation, we will continue to follow closely. Dr. Lui George I agree with the dictator's note, documented as a scribe by Charis Sepulveda.
[2023-08-25] MEDS: HYDROmorphone 1 MG/ML 1 ML SYRINGE IVP PRN ×2 (02:12→05:31)
[2023-08-25] MEDS ORDERED: INDOMETHACIN 100 MG SUPPOSITORY RECTAL ONE (06:00)
[2023-08-25] MEDS: D5-0.45% NACL WITH KCL 20MEQ/L 1,000 ML IV SCH ×3 (06:41→14:33)
[2023-08-25] MEDS ORDERED: MIDAZOLAM 2 MG/2 ML VIAL ONE (06:59)
[2023-08-25] MEDS ORDERED: PROPOFOL 10 MG/ML 20 ML VIAL IV ONE (06:59)
[2023-08-25] MEDS ORDERED: fentaNYL (PF) 50 MCG/ML 2 ML AMP ONE (06:59)
[2023-08-25] MEDS ORDERED: LIDOCAINE 1% INJ 10MG/ML (20 ML MDV) ONE (06:59)
[2023-08-25] MEDS ORDERED: KETAMINE HCL IN 0.9 % NACL 50 MG/5 ML SYRINGE ONE (06:59)
[2023-08-25] MEDS ORDERED: LACTATED RINGERS 1,000 ML IV ONE (07:00)
[2023-08-25] MEDS ORDERED: IOPAMIDOL-300 30ML BTL MISCELLANE ONE (07:15)
[2023-08-25 08:03] LABS: Basophils % (A) 0 %; Eosinophils # (A) 0.5 k/uL (0-0.7); Eosinophils % (A) 3 %; HCT 38.5 % (39.0-53.0); Lymphocytes # (A) 1.2 k/uL (1.0-4.8); Lymphocytes % (A) 9 %; MCH 30.9 pg (25.0-35.0); MCHC 35.6 g/dL (31.0-37.0); MCV 86.8 fL (80.0-100.0); Mean Platelet Volume 7.5; Monocytes % (A) 7 %; Neutrophils # (A) 11.3 k/uL (1.3-7.7); Neutrophils % (A) 80 %; Platelet Count 244 k/uL (150-450); RBC 4.43 m/uL (4.30-5.90); WBC 14.1 k/uL (4.0-11.0)
--- NOTE | 2023-08-25 08:03 | P.PCN ---
Date of Procedure: 08/25/23 Procedure(s) Performed: Brief history: Patient is a 18 year-old pleasant white male admitted hospital with acute gallstone pancreatitis. He presents with severe epigastric pain and elevated amylase and lipase and bilirubin of 14 g procedure. Ultrasound of the abdomen and CT of abdomen did reveal gallstones dilated CBD. Pancreatitis has significantly improved. Last labs demonstrating revealed a bilirubin of 4 g/dL. He is scheduled for an ERCP as part of evaluation of abdominal pain and elevated serum transaminases for the last 2 days' duration. Procedure performed: ERCP/unsuccessful cannulation of the common bile duct Preoperative diagnoses: Jaundice/acute gallstone pancreatitis IV sedation per anesthesia: Procedure: After informed consent was obtained from the patient and after the risks benefits and complications including bleeding perforation and pancreatitis explained in detail the patient was brought into the endoscopy unit. The patient was placed in prone position and IV conscious sedation was administered by anesthesia under continuous monitoring. The Olympus side-viewing duod enoscope was then inserted into the mouth and esophagus intubated without any difficulty. The scope was gradually advanced into the stomach and duodenum. The major papilla was identified without any difficulty. Initial cannulation using the guidewire technique resulted in cannulation of the pancreatic duct. Subsequently despite multiple attempts I was not able to cannulate the common bile duct with a taper tip catheter. At this time the catheter was removed and used a biliary sphincterotome and despite multiple attempts at cannulation using the guidewire technique I was not successful in cannulating the common bile duct. After trying for 20 minutes the procedure was terminated was a concern of pancreatitis. Patient tolerated the procedure well. Impression: Unsuccessful cannulation of the common bile duct Pancreatic duct cannulated with a wire the dye was not injected Recommendations: The findings of this examination were discussed with the patient as well as a family. Discussed with Dr. Solis and at this time will obtain MRCP to evaluate further.
[2023-08-25 08:17] LABS: HGB 13.7 gm/dL (13.0-17.5)
[2023-08-25 08:56] LABS: ALT 127 U/L (10-49); AST 27 U/L (14-35); Albumin 3.4 d/dL (3.8-4.9); Albumin/Globulin Ratio 1.62 Ratio (1.60-3.17); Alkaline Phosphatase 77 U/L (41-126); BUN/Creat Ratio 5.89 Ratio (12.00-20.00); Blood Urea Nitrogen 5.3 mg/dL (9.0-27.0); Calcium 8.7 mg/dL (8.7-10.3); Carbon Dioxide 29.1 mmol/L (21.6-31.8); Chloride 99 mmol/L (96-109); Globulin 2.1 d/dL (1.6-3.3); Glucose 107 mg/dL (70-110); Potassium 3.9 mmol/L (3.5-5.5); Sodium 136 mmol/L (135-145); Total Bilirubin 2.7 mg/dL (0.3-1.2); Total Protein 5.5 d/dL (6.2-8.2)
[2023-08-25] MEDS: PIPERACILLIN-TAZOBACTAM 3.375 GM in SODIUM CHLORIDE 0.9% 100 ML IVPB SCH ×2 (09:03→17:29)
[2023-08-25] MEDS: HEPARIN SODIUM,PORCINE 5,000 UNIT/ML 1 ML VIAL SQ SCH ×2 (09:04→23:53)
[2023-08-25] MEDS: PANTOPRAZOLE 40 MG/10 ML VIAL IVP SCH (09:04)
--- NOTE | 2023-08-25 09:09 | FL ---
EXAMINATION TYPE: FL ERCP biliary duct only DATE OF EXAM: 08/25/2023 HISTORY: Fluoroscopy time Total dose area product (DAP) in uGy*m?, mGy*cm? (or similar): 2.9329 IMPRESSION: 1. Fluoroscopy time.
--- NOTE | 2023-08-25 11:55 | P.PN ---
Subjective Progress Note Date: 08/25/23 CHIEF COMPLAINT: Gallstone pancreatitis HISTORY OF PRESENT ILLNESS: Patient is sitting up in bed comfortably. Reports that his pain has decreased. And currently has no pain. Denies any nausea or vomiting. He did have a bowel movement. He underwent ERCP the reported unsuccessful cannulation of the common bile duct. Patient scheduled for an MRCP today. He did have a low-grade temp of 1.2 last night. WBC is down from 17-14. Total bilirubin is down to 2.7 AST has normalized ALT trending down PHYSICAL EXAM: VITAL SIGNS: Reviewed. GENERAL: Well-developed in no acute distress. HEENT: minimal Scleral icterus present ABDOMEN: Soft. Nondistended. Minimal discomfort with palpation of the epig astric and right upper quadrant NEUROLOGIC: Alert and oriented. Cranial nerves II through XII grossly intact. Skin: decrease in jaundice ASSESSMENT: 1. Gallstone pancreatitis 2. Aending cholangitis PLAN: -Patient scheduled for MRCP this afternoon -Keep patient nothing by mouth -Continue IV fluids -Continue pain management -Continue antibiotics -Laparoscopic cholecystectomy scheduled for 08/27/2023 Physician Monotype Mechanic note has been reviewed by physician. Signing provider agrees with the documented findings, assessment, and plan of care. I have personally seen and examined the patient, reviewed the GEEK SQUAD MANAGER /PAs history, exam and MDM and agree with the assessment and plan as written. Based on total visit time, I have performed more than 50% of the visit. As above: Clinically patient is improving. His pain is less. His white blood cell count is improved. Low-grade temp. Today's ERCP unfortunately unsuccessful. MRCP films reviewed. No obvious CBD Stone seen. Awaiting official report. Tentatively will plan proceeding with laparoscopic cholecystectomy on Monday if enzymes continue to trend downwards. Continue antibiotics. Objective - Vital Signs Vital signs: Vital Signs Temp 99.4 F 08/25/23 06:45 Pulse 65 08/25/23 09:10 Resp 18 08/25/23 06:45 BP 104/58 08/25/23 09:10 Pulse Ox 95 08/25/23 09:10 FiO2 Intake & Output 08/24/23 08/25/23 08/25/23 18:59 06:59 18:59 Intake Total 500 Balance 500 Intake: IV 500 Other: Voiding Method Toilet Toilet # Voids 1 - Labs CBC & Chem 7: 08/25/23 07:02 08/25/23 05:34 Labs: Abnormal Lab Results - Last 24 Hours (Table) 08/24/23 08/25/23 08/25/23 Range/Units 04:09 05:34 07:02 WBC 14.1 H (4.0-11.0) k/uL Hct 38.5 L (39.0-53.0) % Neutrophils # 14.50 H 11.3 H (1.80-7.70) X 10*3/uL Lymphocytes # 0.86 L (0.90-5.00) X 10*3/uL Monocytes # 1.69 H (0.20-1.00) X 10*3/uL BUN 5.3 L (9.0-27.0) mg/dL BUN/Creatinine Ratio 5.89 L (12.00-20.00) Ratio Total Bilirubin 2.7 H (0.3-1.2) mg/dL ALT 127 H (10-49) U/L Total Protein 5.5 L (6.2-8.2) d/dL Albumin 3.4 L (3.8-4.9) d/dL Microbiology - Last 24 Hours (Table) 08/22/23 16:40 Blood Culture - Preliminary Blood 08/22/23 16:20 Blood Culture - Preliminary Blood
--- NOTE | 2023-08-25 16:40 | MR ---
EXAMINATION TYPE: MR MRCP DATE OF EXAM: 08/25/2023 1:25 PM CLINICAL INDICATION:Male, 18 years old with history of jaundice, r/o CBD stone; PHH, Jaundice, r/o CB D stone. Unsuccessful ercp. COMPARISON: CT 08/22/2023 TECHNIQUE: Multi planar, T2-weighted imaging with and without fat saturation and chemical shift imag ing was performed of the abdomen. Then, heavily T2 weighted imaging (half-Fourier acquisition single- shot turbo spin-echo) was utilized in order to study the biliary system. Maximum intensity projectio n images were reconstructed from the original data of the biliary tree. 3D images were created on a [email or web address] work station. No Gadolinium given. FINDINGS: Lower Thorax: There is small bilateral pleural effusions. MRCP: * The intrahepatic ducts mildly dilated centrally. * The common bile duct at the level of the pancreatic head measures 7 mm in size. There is tiny low signal lesions in the papilla series 701 image 26 and 27 unclear whether these are gallstones versus artifact. * The common hepatic duct measures 10 mm in size. * The pancreatic duct is normal. The gallbladder demonstrates multiple gallstones layering dependently. The visualized portion of the cystic duct appears patent. There is no evidence for gallbladder wall thickening. Abdomen: Liver: Unremarkable. Pancreas: Fat stranding changes around the pancreas. Pancreatic parenchyma appears uniform. Spleen: Unremarkable. Adrenal glands: Unremarkable. Kidneys: Unremarkable. Stomach and Bowel: Unremarkable as visualized. Peritoneum: No evidence of pneumoperitoneum or free fluid. Vasculature: Unremarkable. No aortic aneurysm. Musculoskeletal: The osseous structures appear intact. Lymph Nodes: No gross evidence for lymphadenopathy. Abdominal wall: Unremarkable. IMPRESSION: 1. Cholelithiasis with multiple tiny gallstones present. The extra hepatic biliary system is dilated with a few few tiny gallstones near the distal papilla which may be present. 2. Inflammation changes around the pancreas compatible with acute pancreatitis. 3. Trace bilateral pleural effusions.
[2023-08-26] MEDS: PIPERACILLIN-TAZOBACTAM 3.375 GM in SODIUM CHLORIDE 0.9% 100 ML IVPB SCH ×4 (00:17→23:43)
[2023-08-26] MEDS: HYDROmorphone 0.5 MG/0.5 ML SYRINGE IVP PRN ×2 (00:31→05:28)
[2023-08-26] MEDS: D5-0.45% NACL WITH KCL 20MEQ/L 1,000 ML IV SCH ×5 (05:27→23:09)
[2023-08-26 06:59] LABS: Basophils % (A) 0 %; Eosinophils # (A) 0.6 k/uL (0-0.7); Eosinophils % (A) 6 %; HCT 35.5 % (39.0-53.0); HGB 12.6 gm/dL (13.0-17.5); Lymphocytes % (A) 11 %; MCH 31.3 pg (25.0-35.0); MCHC 35.4 g/dL (31.0-37.0); MCV 88.4 fL (80.0-100.0); Mean Platelet Volume 7.3; Monocytes # (A) 0.7 k/uL (0-1.0); Monocytes % (A) 7 %; Neutrophils # (A) 6.8 k/uL (1.3-7.7); Neutrophils % (A) 74 %; Platelet Count 263 k/uL (150-450); RBC 4.01 m/uL (4.30-5.90); RDW 11.8 % (11.5-15.5); WBC 9.2 k/uL (4.0-11.0)
[2023-08-26 07:13] LABS: ALT 104 U/L (4-49); AST 30 U/L (17-59); African American GFR (CKD) >90 (>60 ml/min/1.73 sqM); Albumin 3.1 g/dL (3.5-5.0); Albumin/Globulin Ratio 1.1; Alkaline Phosphatase 148 U/L (38-126); Anion Gap 10 mmol/L; Blood Urea Nitrogen 5 mg/dL (9-20); Calcium 8.5 mg/dL (8.4-10.2); Carbon Dioxide 26 mmol/L (22-30); Chloride 102 mmol/L (98-107); Globulin 2.7 g/dL; Glucose 103 mg/dL (74-99); Lipase 1283 U/L (23-300); Non-African American GFR(CKD) >90 (>60 ml/min/1.73 sqM); Potassium 3.9 mmol/L (3.5-5.1); Sodium 138 mmol/L (137-145); Total Bilirubin 1.9 mg/dL (0.2-1.3); Total Protein 5.8 g/dL (6.3-8.2)
[2023-08-26] MEDS: HEPARIN SODIUM,PORCINE 5,000 UNIT/ML 1 ML VIAL SQ SCH ×2 (07:19→20:47)
[2023-08-26] MEDS: PANTOPRAZOLE 40 MG/10 ML VIAL IVP SCH (09:30)
--- NOTE | 2023-08-26 10:36 | P.PN ---
Subjective Progress Note Date: 08/26/23 (Surgery) CHIEF COMPLAINT: Gallstone pancreatitis HISTORY OF PRESENT ILLNESS: Patient is sitting up in bed comfortably. Reports that his pain has decreased. And currently has no pain. Denies any nausea or vomiting. He did have a bowel movement. He underwent ERCP the reported unsuccessful cannulation of the common bile duct. PHYSICAL EXAM: VITAL SIGNS: Reviewed. GENERAL: Well-developed in no acute distress. HEENT: minimal Scleral icterus present ABDOMEN: Soft. Nondistended. Minimal discomfort with palpation of the epigastric and right upper quadrant NEUROLOGIC: Alert and oriented. Cranial nerves II through XII grossly intact. Skin: decrease in jaundice ASSESSMENT: 1. Gallstone pancreatitis 2. Ascending cholangitis PLAN: -Keep patient nothing by mouth -Continue IV fluids -Continue pain management -Continue antibiotics -Laparoscopic cholecystectomy scheduled for 08/27/2023 Objective - Vital Signs Vital signs: Vital Signs Temp 98.1 F 08/26/23 07:19 Pulse 55 L 08/26/23 07:19 Resp 20 08/26/23 07:19 BP 105/63 08/26/23 07:19 Pulse Ox 98 08/26/23 07:19 FiO2 Intake & Output 08/25/23 08/26/23 08/26/23 18:59 06:59 18:59 Intake Total 500 Balance 500 Intake: IV 500 Other: Voiding Method Toilet Toilet - Labs CBC & Chem 7: 08/26/23 06:12 08/26/23 06:12 Labs: Abnormal Lab Results - Last 24 Hours (Table) 08/26/23 08/26/23 Range/Units 06:12 06:12 RBC 4.01 L (4.30-5.90) m/uL Hgb 12.6 L (13.0-17.5) gm/dL Hct 35.5 L (39.0-53.0) % BUN 5 L (9-20) mg/dL Glucose 103 H (74-99) mg/dL Total Bilirubin 1.9 H (0.2-1.3) mg/dL ALT 104 H (4-49) U/L Alkaline Phosphatase 148 H (38-126) U/L Total Protein 5.8 L (6.3-8.2) g/dL Albumin 3.1 L (3.5-5.0) g/dL Lipase 1283 H (23-300) U/L Microbiology - Last 24 Hours (Table) 08/22/23 16:40 Blood Culture - Preliminary Blood 08/22/23 16:20 Blood Culture - Preliminary Blood
[2023-08-26] MEDS: HYDROmorphone 1 MG/ML 1 ML SYRINGE IVP PRN (19:37)
[2023-08-27] MEDS: D5-0.45% NACL WITH KCL 20MEQ/L 1,000 ML IV SCH ×4 (05:20→20:43)
[2023-08-27] MEDS: HYDROmorphone 1 MG/ML 1 ML SYRINGE IVP PRN ×5 (05:57→21:34)
[2023-08-27 06:37] LABS: ALT 86 U/L (4-49); AST 30 U/L (17-59); African American GFR (CKD) >90 (>60 ml/min/1.73 sqM); Albumin 3.7 g/dL (3.5-5.0); Albumin/Globulin Ratio 1.2; Alkaline Phosphatase 134 U/L (38-126); Anion Gap 11 mmol/L; Blood Urea Nitrogen 3 mg/dL (9-20); Carbon Dioxide 25 mmol/L (22-30); Chloride 104 mmol/L (98-107); Glucose 104 mg/dL (74-99); Non-African American GFR(CKD) >90 (>60 ml/min/1.73 sqM); Potassium 3.8 mmol/L (3.5-5.1); Sodium 140 mmol/L (137-145); Total Bilirubin 1.6 mg/dL (0.2-1.3); Total Protein 6.7 g/dL (6.3-8.2)
[2023-08-27] MEDS ORDERED: DEXAMETHASONE SOD PHOSPHATE 4 MG/ML 1 ML VIAL IV ONE (06:48)
[2023-08-27] MEDS ORDERED: ONDANSETRON 4 MG/2 ML VIAL IVP ONE ×2 (06:48→10:54)
[2023-08-27] MEDS: HEPARIN SODIUM,PORCINE 5,000 UNIT/ML 1 ML VIAL SQ SCH ×2 (07:19→20:05)
[2023-08-27] MEDS: PIPERACILLIN-TAZOBACTAM 3.375 GM in SODIUM CHLORIDE 0.9% 100 ML IVPB SCH ×3 (07:20→23:44)
[2023-08-27] MEDS: PANTOPRAZOLE 40 MG/10 ML VIAL IVP SCH (07:33)
[2023-08-27] MEDS ORDERED: HEPARIN SODIUM,PORCINE 5,000 UNIT/ML 1 ML VIAL SQ ONE (08:15)
[2023-08-27] MEDS ORDERED: IV FLUID CONTINUATION 1,000 ML IV ONE (08:25)
[2023-08-27] MEDS ORDERED: MIDAZOLAM 2 MG/2 ML VIAL ONE (09:10)
[2023-08-27] MEDS ORDERED: LIDOCAINE 1% INJ 10MG/ML (20 ML MDV) ONE (09:10)
[2023-08-27] MEDS ORDERED: fentaNYL (PF) 50 MCG/ML 2 ML AMP ONE (09:10)
[2023-08-27] MEDS ORDERED: HYDROmorphone (PF) 1 MG/ML ONE (09:10)
[2023-08-27] MEDS ORDERED: ROCURONIUM 10 MG/ML (5 ML VIAL) IV ONE (09:10)
[2023-08-27] MEDS ORDERED: PROPOFOL 10 MG/ML 20 ML VIAL IV ONE (09:10)
[2023-08-27] MEDS ORDERED: LIDOCAINE 1%-EPI 1:100,000 50 ML VIAL SQ ONE (09:30)
--- NOTE | 2023-08-27 10:37 | P.OP ---
Date of Procedure: 08/27/23 Procedure(s) Performed: PREOPERATIVE DIAGNOSIS: Gallstone pancreatitis POSTOPERATIVE DIAGNOSIS: Same PROCEDURE: Laparoscopic cholecystectomy SURGEON: Will EBL: Minimal see anesthesia record ANESTHESIA: Gen. COMPLICATIONS: None OPERATIVE PROCEDURE: The patient was brought and placed on the operating room [facility] in the supine position. The patient was placed under general anesthesia at that time. The abdomen was prepped and draped in the usual sterile fashion. A small vertical infraumbilical incision was made. The fascia was grasped with the Yolande forceps. The fascia was retracted anteriorly. The Veress needle was advanced into the peritoneal cavity. The saline drop test was normal. Insufflation took place up to 15 mmHg. A 5 mm optical trocar was advanced and the peritoneal cavity. 2 additional 5 mm trochars were placed in the right upper quadrant under direct visualization. A 12 mm trocar was advanced into the epigastric incision site. The gallbladder was retracted superiorly and laterally. The peritoneum overlying the infundibulum was bluntly dissected. The patient's cystic duct was visualized. The junction between the cystic duct common and hepatic duct was identified. The critical view of safety was achieved after blunt dissection. The cystic duct was then divided after placement of a 2-0 Ethibond stitch tied down using a tie knot device and a 12 mm clip on the patient's side as well as a 12 mm clip on the specimen side. The cystic artery was identified and clipped as well. A small vessel was seen along the gallbladder fossa and clipped as well. The gallbladder was then removed from the liver bed using electrocautery. The gallbladder was then removed from the epigastric trocar site with an Endo Catch bag. The gallbladder fossa was irrigated with saline. There was no evidence of any bleeding or biliary drainage seen. The fascia at the 12 millimeter site was closed using a Nomi- Stefan 0 Vicryl stitch. The trochars were then removed. The skin at all 4 sites was closed using a 4-0 Monocryl stitch. Skin glue was utilized on the incision sites. At the end of this procedure the sponge and needle counts were correct. DISPOSITION: Stable to the recovery room
[2023-08-27] MEDS: LACTATED RINGERS 1,000 ML IV SCH (11:20)
[2023-08-27] MEDS ORDERED: ACETAMINOPHEN TAB 325 MG TAB PO PRN (14:03)
[2023-08-27] MEDS: KETOROLAC 15 MG/ML 1 ML VIAL IVP SCH ×3 (14:14→23:44)
[2023-08-27] MEDS: HYDROcodone/APAP 5-325MG 1 EACH TAB PO PRN ×2 (15:54→20:05)
[2023-08-28] MEDS: HYDROmorphone 1 MG/ML 1 ML SYRINGE IVP PRN (01:33)
[2023-08-28] MEDS: D5-0.45% NACL WITH KCL 20MEQ/L 1,000 ML IV SCH ×2 (03:01→09:42)
[2023-08-28] MEDS: KETOROLAC 15 MG/ML 1 ML VIAL IVP SCH ×2 (06:00→11:38)
[2023-08-28] MEDS ORDERED: HYDROmorphone 0.5 MG/0.5 ML SYRINGE IVP PRN (07:00)
[2023-08-28] MEDS: HEPARIN SODIUM,PORCINE 5,000 UNIT/ML 1 ML VIAL SQ SCH (07:12)
[2023-08-28] MEDS: PIPERACILLIN-TAZOBACTAM 3.375 GM in SODIUM CHLORIDE 0.9% 100 ML IVPB SCH (07:12)
[2023-08-28] MEDS: LACTATED RINGERS 1,000 ML IV SCH (08:05)
[2023-08-28] MEDS: PANTOPRAZOLE 40 MG/10 ML VIAL IVP SCH (08:15)
[2023-08-28] MEDS: HYDROmorphone 0.5 MG/0.5 ML SYRINGE IVP PRN (08:15)
[2023-08-28] MEDS: HYDROcodone/APAP 5-325MG 1 EACH TAB PO PRN (11:03)
[2023-08-28 12:39] LABS: Basophils # (A) 0.06 X 10*3/uL (0.00-0.10); Basophils % (A) 0.8 %; Eosinophils % (A) 8.2 %; HCT 34.5 % (39.6-50.0); HGB 11.8 d/dL (13.0-17.0); Lymphocytes # (A) 1.43 X 10*3/uL (0.90-5.00); Lymphocytes % (A) 19.5 %; MCH 30.2 pg (27.0-32.0); MCHC 34.2 d/dL (32.0-37.0); MCV 88.2 FL (80.0-97.0); Mean Platelet Volume 9.3 FL (9.5-12.2); Monocytes # (A) 0.79 X 10*3/uL (0.20-1.00); Monocytes % (A) 10.8 %; NRBC Per 100 WBC 0 X 10*3/uL (0.00-0.01); Neutrophils # (A) 4.42 X 10*3/uL (1.80-7.70); Neutrophils % (A) 60.3 %; Platelet Count 324 X 10*3/uL (140-440); RBC 3.91 X 10*6/uL (4.40-5.60); WBC 7.33 X 10*3/uL (4.50-10.00)
[2023-08-28 13:24] LABS: ALT 83 U/L (10-49); AST 40 U/L (14-35); Albumin 3.4 d/dL (3.8-4.9); Albumin/Globulin Ratio 1.55 Ratio (1.60-3.17); Alkaline Phosphatase 102 U/L (41-126); BUN/Creat Ratio <4.38 Ratio (12.00-20.00); Blood Urea Nitrogen <3.5 mg/dL (9.0-27.0); Calcium 8.6 mg/dL (8.7-10.3); Carbon Dioxide 24.4 mmol/L (21.6-31.8); Chloride 104 mmol/L (96-109); Globulin 2.2 d/dL (1.6-3.3); Glucose 106 mg/dL (70-110); Potassium 3.9 mmol/L (3.5-5.5); Sodium 138 mmol/L (135-145); Total Bilirubin 0.9 mg/dL (0.3-1.2); Total Protein 5.6 d/dL (6.2-8.2)
--- NOTE | 2023-08-28 13:52 | P.DS ---
Providers Date of admission: 08/22/23 16:44 Expected date of discharge: 08/28/23 Attending physician: Prateek Solis Consults: 08/22/23 16:40 Consult Physician Routine Consulting Provider: Lauren George Consult Reason/Comments: Gallstone pancreatitis Do you want consulting provider notified?: Yes Primary care physician: Maria Eugenia Traylor Hospital Course: Discharge diagnosis 1. Gallstone pancreatitis status post laparoscopic cholecystectomy Hospital course This is a 18-year-old male who presented with epigastric abdominal pain and evidence of jaundice and gallstone pancreatitis. The patient had an ultrasound showing gallstones and a CBD of 1.1 cm. Patient's labs show a white blood cell count of 18, elevated lactic acid, bilirubin of 14.0, elevated transaminases, elevated alkaline phosphatase, and elevated amylase and lipase. No significant EtOH use. Patient was seen by GI service and patient had ERCP completed however, there was unsuccessful cannulation of the common bile duct. Patient that had MRCP completed which reported cholelithiasis with multiple tiny gallstones present. The extrahepatic biliary system is dilated with a few tiny gallstones near the distal papula which may be present. Inflammation changes around the pancreas compatible with acute pancreatitis. Patient status post laparoscopic cholecystectomy for gallstone pancreatitis. Patient tolerated surgery well. His total bilirubin has normalized. AST 48 ALT 83 and alk phos 102 at discharge. White count is normal at discharge. Patient is tolerating diet. His pain is controlled. He is having flatus. He has been up and ambulating. He is afebrile. Incision sites clean dry and intact. He is stable for discharge. Please refer to chart for any further details. Physician Social Insurance Specialist note has been reviewed by physician. Signing provider agrees with the documented findings, assessment, and plan of care. Patient Condition at Discharge: Stable Plan - Discharge Summary Discharge Rx Participant: No New Discharge Prescriptions: New HYDROcodone/APAP 5-325MG [[place] 5-325] 1 tab PO Q6HR PRN 3 Days #12 tab PRN Reason: Pain Ibuprofen [Motrin] 600 mg PO Q8HR PRN #30 tab PRN Reason: Pain Discharge Medication List HYDROcodone/APAP 5-325MG [[place] 5-325] 1 tab PO Q6HR PRN 3 Days #12 tab 08/28/23 [Rx] Ibuprofen [Motrin] 600 mg PO Q8HR PRN #30 tab 08/28/23 [Rx] Follow up Appointment(s)/Referral(s): Prateek Solis MD [Medical Doctor] - 1 Week Maria Eugenia Traylor DO [Primary Care Provider] - 1-2 days Activity/Diet/Wound Care/Special Instructions: No driving while taking [place] No lifting over 10 pounds You may shower. No soaking or tub baths for 2 weeks Very light activity until you are reevaluated at your follow up appointment with your surgeon Low fat diet Discharge Disposition: HOME SELF-CARE
[2023-08-28 14:06] VITALS: BP 116/74; PULSE 74; RESP 17; TEMP 98.4
== END 2023-08-28 14:19 | disposition home or self-care (01) | DRG 418 ==
LOC: EC 14:46 → 5NMEDONC 16:44
PROVIDERS: ADMIT Surgery; ATTEND Surgery
PROC: 0FJD8ZZ Inspection of Pancreatic Duct, Via Natural or Artificial Opening Endoscopic (ICD-10-PCS; 2023-08-25)
PROC: 0FT44ZZ Resection of Gallbladder, Percutaneous Endoscopic Approach (ICD-10-PCS; principal; 2023-08-27 08:00)
DX: K85.10 Biliary acute pancreatitis without necrosis or infection (principal); K80.11 Calculus of gallbladder with chronic cholecystitis with obstruction; K83.09 Other cholangitis; Z53.8 Procedure and treatment not carried out for other reasons; Z28.310 Unvaccinated for COVID-19
CPT/HCPCS: 36415; 43260; 74160; 74181; 74328; 76705; 80053; 81003; 82150; 83605; 83690; 85025; 85610; 87040; 88304; 96361; 96365; 96372; 96375; 96376; 99285